=== PATIENT | male | born 1990 | race Caucasian/White ===

== ENCOUNTER 2024-04-12 16:09 | Emergency (ER) | payer OTHER, SELFPAY ==
--- NOTE | 2024-04-12 16:09 | ECG_ITS ---
APPROVED REPORT Exam: Resting ECG HR:82 bpm ECG Measurements Heart Rate 82 AXES OK 170 P 76 QRSd 91 QRS 73 QT 337 T 62 QTc 375 Conclusion SINUS RHYTHM WITH SINUS ARRHYTHMIA NORMAL ECG Electronically signed by : CHIO RINCON, 04/12/2024 21:42:40
[2024-04-12 16:12] VITALS: BP 143/87; PULSE 86; RESP 13; TEMP 36.6; O2SAT 99; BMI 26.4
--- NOTE | 2024-04-12 16:27 | ED_ITS ---
<Statement entered by Mary Banks DO - 04/12/24 23:20> I was consulted by the SARAHI, and we discussed the complexity of the problems being addressed. I approved the treatment and management plan for this patient's care in the emergency department, thus performing a substantive portion of the medical decision making. Mary Banks DO Discharge Plan Disposition Patient Disposition: Home, Self-Care Condition: Good Prescriptions Prescriptions: New pantoprazole [Protonix] 40 mg tablet,delayed release (DR/EC) 40 mg PO DAILY 56 Days Qty: 56 0RF Referrals Follow up/Referrals: Orestes Francisco [Referring] - See instructions Provider,Referral, [Primary Care Provider] - See instructions Activity Restrictions/Add. Instructions Additional Instructions/Restrictions: Please follow-up with your PCP within 1 week. Return to ER for any worsening signs or symptoms as needed. I have referred you to saul in case for upper endoscopy. You may of course to choose a provider of your liking. Clinical Impressions Clinical Impression: Atypical chest pain Dysphagia Qualifiers: Dysphagia type: unspecified Qualified Code(s): R13.10 - Dysphagia, unspecified Instructions Patient Instructions: DI for Atypical Chest Pain Discharge ED Provider: Mary Banks General Adult HPI <SHILPI Gallagher - Last Filed: 04/12/24 23:02> General Chief complaint: Chest Pain Stated complaint: chest pain Time Seen by Provider: 04/12/24 16:16 Mode of Arrival: Ambulatory Source of Information: Patient Limitations: No Limitations Description of Symptoms (Recalled from ER Triage Doc. by RN): pt presents to ED with c/o chest burning and trouble swallowing. pt reports symptoms began approx 0200 this am. pt reports to taking tums this morning with little relief. symptoms intermittent. History of Present Illness HPI narrative: EpigastricPatient presents for evaluation of chest pain. Patient states he was awoken at 3:00 in the morning with a burning sensation in the center of his chest. It felt like he was having difficulty swallowing. Patient states he took Tums and the symptoms went away however it came back several hours later hence he presented for evaluation to the ER. He also reports occasional sensation of food bolus especially with breads. He denies shortness of breath fever chills hemoptysis hematochezia melena nausea vomit diarrhea. Related Data Previous Rx's Medication Instructions Recorded pantoprazole 40 mg tablet,delayed 40 mg PO DAILY 8 weeks #56 tabs 04/12/24 release (Protonix) Allergies Allergy/AdvReac Type Severity Reaction Status Date / Time No Known Allergies Allergy Verified 04/12/24 16:39 PFS <SHILPI Gallagher - Last Filed: 04/12/24 23:02> [facility] Disclaimer: The information contained in this section may have been updated after the patient was seen, as this information can be updated by other users. Social History (Updated 04/12/24 @ 23:02 by SHILPI Gallagher) Smoking Status: Current every day smoker alcohol intake: current alcohol intake frequency: a few times a month current occupational status: employed Travel in the last 8 weeks: None <SHILPI Gallagher - Last Filed: 04/12/24 23:02> ROS Obtained: Yes Systems reviewed as appropriate & no additional complaints except as documented Physical Exam <SHILPI Gallagher - Last Filed: 04/12/24 23:02> General General appearance: alert and in no apparent distress Head Head exam: atraumatic and normal inspection Eye Eye exam: Present normal appearance, PERRL and EOMI ENT ENT exam: Present normal exam, normal oropharynx and mucous membranes moist Neck Neck exam: Present normal inspection and full ROM Chest Chest inspection: Present normal inspection and symmetric chest wall rise Respiratory Respiratory exam: Present normal lung sounds bilaterally Cardiovascular Cardiovascular exam: Present regular rate and normal rhythm Abdominal Exam Abdominal exam: Present soft and normal bowel sounds; Absent tenderness, guarding or rebound Extremities Exam Extremities exam: Present normal inspection and full ROM Back Exam Back exam: Present normal inspection and full ROM; Absent tenderness Neurological Exam Neurological exam: Present alert and oriented X3 Medical Decision Making <SHILPI Gallagher - Last Filed: 04/12/24 23:02> Medical Records Medical records reviewed: Yes I reviewed the patient's medical records. Eliseo Inquiry Pt receiving controlled substance: No Vital Signs: 04/12/24 16:12 04/12/24 16:30 04/12/24 17:00 Temperature 97.9 F Temperature Source Oral Pulse Rate 75 92 H Pulse Rate [Left Radial] 86 Respiratory Rate 13 15 14 Blood Pressure 121/81 133/74 Blood Pressure [Right Arm] 143/87 H Blood Pressure Mean 91 Blood Pressure Mean [Right Arm] 105 02 Sat by Pulse Oximetry 99 97 96 Oxygen Delivery Method Room Air Room Air 04/12/24 17:30 04/12/24 18:05 Temperature 97.9 F Temperature Source Pulse Rate 63 70 Pulse Rate [Left Radial] Respiratory Rate 18 11 L Blood Pressure 122/89 111/76 Blood Pressure [Right Arm] Blood Pressure Mean Blood Pressure Mean [Right Arm] 02 Sat by Pulse Oximetry 96 Oxygen Delivery Method Room Air Lab Data Lab results reviewed: Yes I reviewed the patient's lab results. Lab Results 04/12/24 16:14: WBC 7.7, RBC 4.97, Hgb 15.7, Hct 45.9, MCV 92.4, MCH 31.6 H, MCHC 34.2, RDW 13.4, Plt Count 251, MPV 8.7, Neut % (Auto) 59.2, Lymph % (Auto) 32.5, [place] % (Auto) 6.0, Eos % (Auto) 1.2, Baso % (Auto) 1.1, Neut # (Auto) 4.6, Lymph # (Auto) 2.5, [place] # (Auto) 0.5, Eos # (Auto) 0.1, Baso # (Auto) 0.1, Sodium 143, Potassium 3.7, Chloride 104, Carbon Dioxide 29, Anion Gap 13.7, BUN 19, Creatinine 1.00, Estimated Creat Clear 136, Estimated GFR 87, Est GFR ( Amer) 105, Glucose 93, Calcium 9.5, Magnesium 2.0, Total Bilirubin 0.6, AST 31, ALT 35, Alkaline Phosphatase 62, Troponin I < 0.01, Total Protein 7.9, Albumin 4.8, Globulin 3.1, Albumin/Globulin Ratio 1.5 04/12/24 16:14 04/12/24 16:14 Orders (Tests/Meds): ED MEDICATIONS Discontinued Medications Generic Name Dose Route Start Last Admin Trade Name Freq PRN Reason Stop Dose Admin Belladonna Alkaloids 60 ml 04/12/24 16:28 04/12/24 16:40 Belladonna Alkaloids 60 Ml Ml PO 04/12/24 16:29 60 ml ONCE ONE Administration ORDERS Category Date Time Status Chest XR -- portable [XR chest portable] Stat Exams 04/12/24 16:28 Completed CBC w/Auto Diff [Complete Blood Count Auto Diff] Stat Lab 04/12/24 16:14 Completed CMP [Comprehensive Metabolic Panel] Stat Lab 04/12/24 16:14 Completed Magnesium Stat Lab 04/12/24 16:14 Completed Trop I [Troponin I] Stat Lab 04/12/24 16:14 Completed Medical Decision Narrative: In summary patient is a 32-year-old male who presents to the emergency department for evaluation of chest pain. Patient is hemodynamically stable upon arrival, febrile. Physical exam is remarkable for slight epigastric tenderness to palpation but otherwise is nonfocal and unremarkable. Differential diagnosis includes ACS versus eosinophilic esophagitis versus Cruz's esophagus versus ulcer disease etc. Initial workup will be conducted with hematologic labs twelve-lead EKG chest x-ray. Initial interventions include crystalloid bolus Toradol Tylenol and GI cocktail. Initial workup reviewed by me shows his hematologic labs are nonactionable and his plain from chest x-ray via my informal interpretation is normal with no acute processes. Upon repeat evaluation patient had complete resolution of his symptoms after GI cocktail. Given this patient patient is appropriate for discharge with referral to gastroenterology for upper endoscopy. Patient also started on a proton pump inhibitor and prescription sent to his pharmacy. <Mary Banks, DO - Last Filed: 04/12/24 23:21> Vital Signs: 04/12/24 16:12 04/12/24 16:30 04/12/24 17:00 Temperature 97.9 F Temperature Source Oral Pulse Rate 75 92 H Pulse Rate [Left Radial] 86 Respiratory Rate 13 15 14 Blood Pressure 121/81 133/74 Blood Pressure [Right Arm] 143/87 H Blood Pressure Mean 91 Blood Pressure Mean [Right Arm] 105 02 Sat by Pulse Oximetry 99 97 96 Oxygen Delivery Method Room Air Room Air 04/12/24 17:30 04/12/24 18:05 Temperature 97.9 F Temperature Source Pulse Rate 63 70 Pulse Rate [Left Radial] Respiratory Rate 18 11 L Blood Pressure 122/89 111/76 Blood Pressure [Right Arm] Blood Pressure Mean Blood Pressure Mean [Right Arm] 02 Sat by Pulse Oximetry 96 Oxygen Delivery Method Room Air Lab Data Lab Results 04/12/24 16:14: WBC 7.7, RBC 4.97, Hgb 15.7, Hct 45.9, MCV 92.4, MCH 31.6 H, MCHC 34.2, RDW 13.4, Plt Count 251, MPV 8.7, Neut % (Auto) 59.2, Lymph % (Auto) 32.5, [place] % (Auto) 6.0, Eos % (Auto) 1.2, Baso % (Auto) 1.1, Neut # (Auto) 4.6, Lymph # (Auto) 2.5, [place] # (Auto) 0.5, Eos # (Auto) 0.1, Baso # (Auto) 0.1, Sodium 143, Potassium 3.7, Chloride 104, Carbon Dioxide 29, Anion Gap 13.7, BUN 19, Creatinine 1.00, Estimated Creat Clear 136, Estimated GFR 87, Est GFR ( Amer) 105, Glucose 93, Calcium 9.5, Magnesium 2.0, Total Bilirubin 0.6, AST 31, ALT 35, Alkaline Phosphatase 62, Troponin I < 0.01, Total Protein 7.9, Albumin 4.8, Globulin 3.1, Albumin/Globulin Ratio 1.5 Orders (Tests/Meds): ED MEDICATIONS Discontinued Medications Generic Name Dose Route Start Last Admin Trade Name Freq PRN Reason Stop Dose Admin Belladonna Alkaloids 60 ml 04/12/24 16:28 04/12/24 16:40 Belladonna Alkaloids 60 Ml Ml PO 04/12/24 16:29 60 ml ONCE ONE Administration ORDERS Category Date Time Status Chest XR -- portable [XR chest portable] Stat Exams 04/12/24 16:28 Completed CBC w/Auto Diff [Complete Blood Count Auto Diff] Stat Lab 04/12/24 16:14 Completed CMP [Comprehensive Metabolic Panel] Stat Lab 04/12/24 16:14 Completed Magnesium Stat Lab 04/12/24 16:14 Completed Trop I [Troponin I] Stat Lab 04/12/24 16:14 Completed ECG Data Tracing #1: I reviewed this ECG and interpreted as documented below: Normal sinus rhythm with a ventricular rate of [address] changes concerning for ischemia. Normal axis and intervals. ECG initial impression date: 04/12/24 ECG initial impression time: 16:12 Critical Care <SHILPI Gallagher - Last Filed: 04/12/24 23:02> Critical Care Time Critical Care Time: No
--- NOTE | 2024-04-12 16:28 | XR_ITS ---
PROCEDURE INFORMATION: Exam: XR Chest Exam date and time: 04/12/2024 5:17 PM Age: 34 years old Clinical indication: Pain; Chest pressure; Additional info: Chest pain TECHNIQUE: Imaging protocol: Radiologic exam of the chest. Views: 1 view. COMPARISON: No relevant prior studies available. FINDINGS: Lungs: Lungs are clear. No consolidation. Pleural spaces: No pleural effusion. No pneumothorax. Heart/Mediastinum: Cardiomediastinal silhouette is normal. Bones/joints: No acute abnormality. IMPRESSION: No acute findings.
[2024-04-12 16:30] VITALS: BP 121/81; PULSE 75; RESP 15; O2SAT 97
[2024-04-12 16:38] LABS: Chloride 104 mmol/L (98-107); Potassium 3.7 mmoL/L (3.5-5.1); Sodium 143 mmol/L (136-145)
[2024-04-12 16:40] LABS: Alanine Aminotransferase 35 U/L (12-78); Aspartate Amino Transferase 31 U/L (17-59); Basophils # 0.1 K/mm3 (0-0.2); Basophils % 1.1 % (0.1-2.0); Blood Urea Nitrogen 19 mg/dl (9-20); Creatinine Clearance Estimated 136 mL/min (50-200); Eosinophils # 0.1 K/mm3 (0.0-0.4); Eosinophils % 1.2 % (0.1-12.0); Estimated Glomerular Filt Rate 87 ml/min (>60); GFR (African American) 105 ML/MIN (>60); Hematocrit 45.9 % (42.0-52.0); Hemoglobin 15.7 g/dL (14.1-18.0); Lymphocytes # 2.5 K/mm3 (0.7-4.5); Lymphocytes % 32.5 % (10-50); Mean Corpuscular HGB Conc 34.2 g/dL (31.8-35.4); Mean Corpuscular Hemoglobin 31.6 pg (27.0-31.2); Mean Corpuscular Volume 92.4 fl (80-94); Mean Platelet Volume 8.7 fl (7.4-10.4); Monocytes # 0.5 K/mm3 (0.1-1.0); Neutrophils # 4.6 K/mm3 (1.8-7.8); Neutrophils % 59.2 % (37.0-80.0); Platelet Count 251 K/mm3 (142-424); Red Blood Count 4.97 M/mm3 (4.60-6.20); Red Cell Distribution Width 13.4 % (11.5-17.5); White Blood Count 7.7 K/mm3 (4.8-10.8)
[2024-04-12] MEDS: BELLADONNA ALKALOIDS 60 ML ML PO (16:40)
[2024-04-12 16:41] LABS: Albumin Level 4.8 g/dl (3.5-5.0); Albumin/Globulin Ratio 1.5 (1.1-1.8); Alkaline Phosphatase 62 U/L (38-126); Anion Gap 13.7 mEq/L (5-15); Bilirubin,Total 0.6 mg/dl (0.2-1.3); Calcium 9.5 mg/dl (8.4-10.2); Carbon Dioxide 29 mmol/L (22.0-30.0); Globulin 3.1 g/dL (1.3-3.2); Glucose 93 mg/dl (74-100); Total Protein,Serum 7.9 g/dl (6.3-8.2)
[2024-04-12 16:54] LABS: Troponin I < 0.01 ng/ml (0.00-0.034)
[2024-04-12 17:00] VITALS: BP 133/74; PULSE 92; RESP 14; O2SAT 96
[2024-04-12 17:30] VITALS: BP 122/89; PULSE 63; RESP 18; O2SAT 96
[2024-04-12 18:05] VITALS: BP 111/76; PULSE 70; RESP 11; TEMP 36.6; O2SAT 98
== END 2024-04-12 18:10 | disposition home or self-care (01) ==
PROVIDERS: Physician Assistant; Emergency Provider Emergency Medicine
DX: R07.89 Other chest pain (principal); R13.10 Dysphagia, unspecified; F17.210 Nicotine dependence, cigarettes, uncomplicated
CPT/HCPCS: 71045; 80053; 83735; 84484; 85025; 93005; 99284